=== PATIENT | female | born 1975 | race Caucasian/White ===

== ENCOUNTER 2024-10-14 22:55 | Emergency (ER) | payer SELFPAY ==
[2024-10-14 23:31] LABS: BASOPHILS ABSOLUTE AUTO 0.04 K/uL (0.00-0.10); BASOPHILS PERCENT AUTO 0.6 % (0.1-1.3); EOSINOPHILS ABSOLUTE AUTO 0.02 K/uL (0.00-0.40); EOSINOPHILS PERCENT AUTO 0.3 % (0.0-5.4); IMMATURE GRAN ABSOLUTE AUTO 0.01 K/uL (0.00-0.23); IMMATURE GRAN PERCENT AUTO 0.1 % (0.0-0.7); LYMPHOCYTES ABSOLUTE AUTO 1.96 K/uL (0.8-3.3); LYMPHOCYTES PERCENT AUTO 27.0 % (11.4-47.7); MONOCYTES ABSOLUTE AUTO 0.49 K/uL (0.20-0.90); MONOCYTES PERCENT AUTO 6.7 % (3.3-12.6); NEUTROPHILS ABSOLUTE AUTO 4.75 K/uL (1.0-7.6); NEUTROPHILS PERCENT AUTO 65.3 % (40.0-78.1); PLATELET COUNT,PLT 190 K/uL (130-375); RED BLOOD CELL COUNT 4.33 M/uL (3.77-5.24); WHITE BLOOD CELL COUNT,WBC 7.3 K/uL (3.2-11.0)
[2024-10-14] MEDS ORDERED: Naloxone 0.4 MG/ML SDV IVPUSH PRN (23:33)
[2024-10-14] MEDS: Ondansetron 4 MG/2 ML SDV IVPUSH ONE (23:45)
[2024-10-14 23:58] LABS: A/G RATIO 1.2 (1.2-2.2); ALANINE AMINOTRANSFERASE,ALT 578 U/L (12-78); ASPARTATE AMNIOTRANSFERASE,AST 607 U/L (15-37); BILIRUBIN TOTAL 1.5 mg/dL (0.2-1.0); BLOOD UREA NITROGEN,BUN 8 mg/dL (7-18); CARBON DIOXIDE,CO2 27 mmol/L (21-32); CHLORIDE,CL 103 mmol/L (100-108); CREATININE 0.9 mg/dL (0.6-1.0); EST CRCL DRUG DOSING (CG) 70.78 mL/min; ESTIMATED GFR 78 mL/min (>60); GLUCOSE RANDOM 116 mg/dL (74-106); LACTIC ACID 0.6 mmol/L (0.4-2.0); POTASSIUM,K 3.7 mmol/L (3.6-5.2); PROTEIN TOTAL,TP 7.1 g/dL (6.4-8.2); SODIUM,NA 139 mmol/L (140-148)
[2024-10-15] MEDS: Iopamidol 612 MG/ML 100 ML Bottle IV SCH (01:19)
[2024-10-15] MEDS: Sodium Chloride 0.9% 10 ML Syringe FLUSH PRN (01:19)
[2024-10-15] MEDS: metroNIDAZOLE/Normal Saline 500 MG in Premix Bag 1 BAG IV ONE (02:32)
== END 2024-10-15 08:29 | disposition other institution (70) ==
LOC: JP.ED 22:55
DX: K81.9 Cholecystitis, unspecified (principal); E86.0 Dehydration; E66.9 Obesity, unspecified; Z68.24 Body mass index [BMI] 24.0-24.9, adult; Z87.891 Personal history of nicotine dependence; Z88.0 Allergy status to penicillin; Z79.899 Other long term (current) drug therapy
CPT/HCPCS: 36415; 74177; 80053; 83605; 83690; 84484; 85025; 86140; 96361; 96365; 96368; 96375; 99285-25; J0696; J1171; J1836; J2405; J7030; Q9967